=== PATIENT | male | born 1935 | race Two or more races ===

== ENCOUNTER 2016-07-24 16:22 | Emergency (ER) | payer MEDICARE, BC ==
[~2016-07-24] VITALS: Ht 180.3 cm; Wt 81.6 kg
--- NOTE | 2016-07-24 16:41 | NUR ---
PT BIB W [facility] TO L FOOT X 1 MONTH SENT FROM [facility].
--- NOTE | 2016-07-24 16:50 | NUR ---
LAB AT BEDSIDE BLOOD SAMPLE COLLECTED SENT TO LAB
[2016-07-24 17:00] LABS: BASOPHILS # (AUTO) 0.1 /CMM (0.0-0.2); EOSINOPHILS # (AUTO) 0.1 /CMM (0.0-0.7); HEMATOCRIT 49 % (39-51); LYMPHOCYTES # (AUTO) 2.4 /CMM (0.8-4.8); LYMPHOCYTES % (AUTO) 17.4 % (20.0-44.0); MEAN CORPUSCULAR HEMOGLOBIN 30 PG (26.0-33.0); MEAN CORPUSCULAR HGB CONC 33 g/dl (31.0-36.0); MEAN CORPUSCULAR VOLUME 92 fL (80-96); MONOCYTES # (AUTO) 1.3 /CMM (0.1-1.30); MONOCYTES % (AUTO) 9.8 % (2.0-12.0); NEUTROPHILS # (AUTO) 9.8 /CMM (1.8-8.9); NEUTROPHILS % (AUTO) 70.8 % (43.0-81.0); PLATELET COUNT (AUTO) 165 /CMM (150-450); RDW COEFFICIENT OF VARIATION 13.6 (11.5-15.0); RED BLOOD CELL COUNT(AUTO) 5.26 MIL/uL (4.5-6.0); WHITE BLOOD COUNT (AUTO) 13.7 K/uL (4.3-11.0)
--- NOTE | 2016-07-24 17:02 | NUR ---
XRAY AT BEDSIDE
[2016-07-24 17:08] LABS: CALCIUM, SERUM 9.1 mg/dL (8.5-10.1); CREATININE 1.5 mg/dL (0.6-1.3); POTASSIUM 3.7 mmol/L (3.5-5.1)
[2016-07-24 17:33] LABS: C-REACTIVE PROTEIN 17.4 mg/dL (0.0-0.9)
--- NOTE | 2016-07-24 18:31 | NUR ---
Patient discharged to home in stable condition. Written and verbal after care instructions given. Patient verbalizes understanding of instruction.
[2016-07-24 18:32] VITALS: BP 133/114
== END 2016-07-24 18:33 | disposition home or self-care (01) ==
LOC: ER 16:24
DX: E11.621 Type 2 diabetes mellitus with foot ulcer (principal)
CPT/HCPCS: 36415; 73630-TC; 80048-TC; 85025-TC; 86140-TC; A4606; Z7610